=== PATIENT | male | born 1990 | race African-American/Black ===

== ENCOUNTER 2024-03-06 21:18 | Inpatient (IN) | payer OTHER ==
[~2024-03-06] VITALS: Ht 172.7 cm; Wt 101.6 kg
[2024-03-06 21:36] LABS: BASOPHILS ABSOLUTE AUTO 0.05 K/mm3 (0.00-0.23); BASOPHILS PERCENT AUTO 1 % (0-2); EOSINOPHILS ABSOLUTE AUTO 0.37 K/mm3 (0.00-0.68); EOSINOPHILS PERCENT AUTO 5 % (0-6); Hematocrit 37.8 % (37.0-53.0); Hemoglobin 12.5 g/dL (13.5-17.5); IMMATURE GRAN ABSOLUTE AUTO 0.03 K/mm3 (0.00-0.10); IMMATURE GRAN PERCENT AUTO 0 % (0-1); LYMPHOCYTES ABSOLUTE AUTO 2.53 K/mm3 (0.84-5.20); LYMPHOCYTES PERCENT AUTO 32 % (21-46); MONOCYTES PERCENT AUTO 10 % (4-13); Mean Corpuscular HGB 28.2 pg (26.0-34.0); Mean Corpuscular HGB Conc 33.1 g/dL (31.5-36.5); Mean Corpuscular Volume 85 fL (80-100); Mean Platelet Volume 11.2 fL (9.1-12.4); NEUTROPHILS ABSOLUTE AUTO 4.07 K/mm3 (1.96-9.15); NEUTROPHILS PERCENT AUTO 52 % (41-73); Platelet Count 292 K/mm3 (150-400); RDW Coefficient Variation 13.1 % (11.7-14.2); RDW Standard Deviation 40.9 fL (35.1-46.3); Red Blood Cell Count 4.43 M/mm3 (4.30-5.90); White Blood Cell Count 7.85 K/mm3 (4.00-11.30)
[2024-03-06 21:43] LABS: Bicarbonate Venous 22.1 mmol/L (24.0-30.0); PCO2 Venous 29.3 mmHg (38-42); pH Blood Venous 7.45 (7.34-7.37)
[2024-03-06 21:44] LABS: Base Excess Venous -4 mmol/L
[2024-03-06 21:56] LABS: Albumin, Blood 2.8 g/dL (3.4-5.0); Albumin/Globulin Ratio 0.6 (0.8-1.8); Bilirubin, Total 0.2 mg/dL (0.1-1.0); Calcium, Blood 8.4 mg/dL (8.5-10.1); Creatinine, Blood 3.59 mg/dL (0.60-1.20); Globulin, Blood 4.4 g/dL (2.2-4.0); Potassium, Blood 4.7 mmol/L (3.5-5.5); Total Protein, Blood 7.2 g/dL (6.4-8.2)
[2024-03-06] MEDS ORDERED: NS 1,000 ML IV SCH (23:15)
[2024-03-07 00:02] LABS: Source, Urine Clean Catch
[2024-03-07] MEDS ORDERED: AmLODIPine Besylate 5 MG Tab PO ONE (00:05)
[2024-03-07 00:09] LABS: Bilirubin, Urine Neg (Neg); Blood, Urine 2+ (Neg); Glucose Qualitative, Urine 4+ (Neg); Ketones, Urine 1+ (Neg); Leukocyte Esterase, Urine Neg (Neg); Nitrite, Urine Neg (Neg); Protein, Urine 4+ (Neg); Urobilinogen, Urine NORM (Normal)
[2024-03-07 00:21] LABS: Appearance, Urine Clear (Clear); Color, Urine Pale Yellow (P-Yellow)
[2024-03-07 00:22] LABS: Bacteria Not Seen /hpf; Red Blood Cells, Urine 0-2 /hpf (0-2); Squamous Epithelial Cells Rare /hpf (Few); White Blood Cells, Urine 0-2 /hpf (0-5)
[2024-03-07] MEDS ORDERED: Acetaminophen 500 MG Tab PO ONE (01:05)
[2024-03-07] MEDS ORDERED: AMLODIPINE BESY10 MG PO (01:13)
[2024-03-07] MEDS ORDERED: CARV25 PO (01:14)
[2024-03-07] MEDS ORDERED: ALFU10 PO (01:14)
[2024-03-07] MEDS ORDERED: HUMULIN N100 UNIT/1 SC ×2 (01:21→01:22)
[2024-03-07] MEDS ORDERED: HydrALAZINE HCl 20 MG / ML 1ML Vial IV PRN (01:35)
[2024-03-07] MEDS ORDERED: Ondansetron HCl 2 MG / ML 2ML Vial IV PRN (01:35)
[2024-03-07] MEDS ORDERED: Acetaminophen 325 MG TABLET PO PRN (01:35)
[2024-03-07] MEDS ORDERED: Lactated Ringer's 1,000 ML IV SCH (02:00)
[2024-03-07 03:17] LABS: BASOPHILS ABSOLUTE AUTO 0.04 K/mm3 (0.00-0.23); BASOPHILS PERCENT AUTO 0 % (0-2); EOSINOPHILS ABSOLUTE AUTO 0.39 K/mm3 (0.00-0.68); EOSINOPHILS PERCENT AUTO 4 % (0-6); Hemoglobin 11.4 g/dL (13.5-17.5); IMMATURE GRAN ABSOLUTE AUTO 0.03 K/mm3 (0.00-0.10); IMMATURE GRAN PERCENT AUTO 0 % (0-1); LYMPHOCYTES ABSOLUTE AUTO 2.22 K/mm3 (0.84-5.20); LYMPHOCYTES PERCENT AUTO 23 % (21-46); MONOCYTES ABSOLUTE AUTO 1.02 K/mm3 (0.16-1.47); MONOCYTES PERCENT AUTO 11 % (4-13); Mean Corpuscular HGB 28.4 pg (26.0-34.0); Mean Corpuscular HGB Conc 33.5 g/dL (31.5-36.5); Mean Corpuscular Volume 85 fL (80-100); Mean Platelet Volume 10.9 fL (9.1-12.4); NEUTROPHILS ABSOLUTE AUTO 5.78 K/mm3 (1.96-9.15); NEUTROPHILS PERCENT AUTO 61 % (41-73); Platelet Count 266 K/mm3 (150-400); RDW Coefficient Variation 13.2 % (11.7-14.2); RDW Standard Deviation 41.4 fL (35.1-46.3); Red Blood Cell Count 4.01 M/mm3 (4.30-5.90); White Blood Cell Count 9.48 K/mm3 (4.00-11.30)
[2024-03-07 03:45] LABS: Albumin, Blood 2.5 g/dL (3.4-5.0); Albumin/Globulin Ratio 0.6 (0.8-1.8); Bilirubin, Total 0.2 mg/dL (0.1-1.0); Bun/Creatinine Ratio 11.9 (12.0-20.0); Calcium, Blood 7.9 mg/dL (8.5-10.1); Creatinine, Blood 3.35 mg/dL (0.60-1.20); Globulin, Blood 3.9 g/dL (2.2-4.0); Potassium, Blood 4.1 mmol/L (3.5-5.5); Total Protein, Blood 6.4 g/dL (6.4-8.2)
[2024-03-07] MEDS ORDERED: Insulin Regular 100 UNIT/ML 10ML Vial SC SCH (06:00)
[2024-03-07] MEDS ORDERED: Heparin Sodium,Porcine 5,000 UNIT/0.5 ML SDV SC SCH (09:00)
[2024-03-07] MEDS ORDERED: AmLODIPine Besylate 5 MG Tab PO SCH (09:00)
[2024-03-07] MEDS ORDERED: CloNIDine 0.1 MG Tab PO SCH (09:00)
[2024-03-07] MEDS ORDERED: Insulin Human Lispro 100 Units/ML 3ML Syringe SC SCH (11:30)
[2024-03-07 12:11] VITALS: BP 172/93
[2024-03-07] MEDS ORDERED: HUMULIN R100 UNIT/2 SC (12:30)
[2024-03-07 12:32] VITALS: BP 158/80
--- NOTE | 2024-03-07 13:58 | NUR ---
NURSING PCU DAYSHIFT: Assumed care of pt at approx 1200. Arrived from ER via [place], accompanied by RNAdenike Suárez w/ODELL, for line management, to unit bed. Denied dizziness/light headedness, minimal BLE neuropathy r/t hx of diabetes. A/O, c/o 4/ MILLARD, tx w/meds as ordered. Skin fairly intact w/scattered scabs/scars noted to BLE. Tele in place, NSR, no c/o CP/pressure, SBP 170 at arrival, no noted edema. L/S cta t/o, O2 sat upper 90's on RA, denies dyspnea, no noted cough. Abd SNT, BT+, voiding w/o difficulty per pt. PIV x1, LR infusing at 150cc/hr. No s/s of acute distress upon arrival. Lab results reviewed, insulin administered as ordered. PRN IV hydralazine administered, f/u SBP 150's. Discussed plan of care w/pt and s/o. Denied questions at that time. Call light in reach, cont to monitor for any changes.
[2024-03-07 16:01] VITALS: BP 159/99
[2024-03-07] MEDS ORDERED: NS 1,000 ML IV ONE (17:20)
--- NOTE | 2024-03-07 17:54 | NUR ---
NURSING PCU DAYSHIFT SUMMARY: Pt continues to c/o MILLARD 4-01/15, treating w/meds as ordered. SBP remains 150's, HR 80-100, SR w/no CP/pressure. CBG >400 after LCS, PMD aware, new d/o received. 1000ml fluid bolus infusing and will be followed by f/u glucose check. Pt and s/o deny any questions/needs. Call light in reach. Cont to monitor until rpt is given to NOC RN.
[2024-03-07 20:16] VITALS: BP 180/100
--- NOTE | 2024-03-07 20:32 | NUR ---
ASSUMPTION OF CARE: PATIETN IS ALERT AND ORIENTED X 4, ABLE TO MAKE NEEDS KNOWN. IS AT THE BEDSIDE. EDUCATION ABOUT CURRENT ILLNESS AND PLAN OF CARE PROVIDED. IVS FLUSHED. PATIENT IS ON RA SPO2 >96%. PATIENT IS HYPERTENSIVE EVENING MEDS GIVEN PER NOV. CBG HAS BEEN BRITTLE, DAY RN ENDORSED PLAN, POLYURIA USING THE URINAL FOR ACCURATE I/O. NO ACUTE CONCERNS FROM FAMILY PT OR THIS RN AT THIS TIME.
[2024-03-07] MEDS ORDERED: Insulin NPH 100 Unit / ML 10ML Vial SC SCH (21:00)
[2024-03-07] MEDS ORDERED: Insulin NPH 10 Unit/0.1ML (Single Dose) SC SCH (21:00)
[2024-03-07] MEDS ORDERED: LevETIRAcetam 500 MG Tab PO SCH (21:00)
[2024-03-08 00:50] VITALS: BP 139/81
[2024-03-08 05:00] VITALS: BP 132/78
--- NOTE | 2024-03-08 06:33 | NUR ---
EOS: PATIENT ONLY IMPROVED THROUGHOUT THE NIGHT, CBG IMPROVED , DENIES CHEST PAIN PRESSURE OR SOB. ORAL INTAKE HAS BEEN WELL URINATING SLOWED MINORLY. REFLECTIVE FROM IMPROVED BLOOD PRESSURE. VSS NO ACUTE CONCERNS.
[2024-03-08 07:50] VITALS: BP 159/100
[2024-03-08 08:04] LABS: Bun/Creatinine Ratio 12.1 (12.0-20.0); Calcium, Blood 8.4 mg/dL (8.5-10.1); Creatinine, Blood 3.15 mg/dL (0.60-1.20)
[2024-03-08] MEDS ORDERED: Insulin NPH 100 Unit / ML 10ML Vial SC SCH (09:00)
[2024-03-08] MEDS ORDERED: Carvedilol 25 MG Tab PO SCH (09:00)
[2024-03-08] MEDS ORDERED: LEVETIRACETAM PO (09:23)
--- NOTE | 2024-03-08 11:20 | NUR ---
DISCHARGE: PT HAS BEEN CLEARED FOR DISCHARGE HOME. ALL IV ACCESS DC'd WNL. PT DRESSES SELF. DC PAPERWORK AND INSTRUCTIONS PROVIDED TO PT, ALL QUESTIONS HAVE BEEN ANSWERED. PT AMBULATES F/UNIT IN NAD, ESCORTED BY STAFF MEMBER.
[2024-03-08] MEDS ORDERED: AmLODIPine Besylate 5 MG Tab PO SCH (21:00)
== END 2024-03-08 11:14 | disposition home or self-care (01) | DRG 684 ==
LOC: ER 21:18 → ERHOLD 21:19 → ER 21:19 → ERHOLD 21:19 → PCU 21:19 → ERHOLD 03-07 11:56 → PCU 03-07 11:56 → ERHOLD 03-07 14:34 → PCU 03-08 11:14
PROVIDERS: Internal Medicine; Nurse Practitioner; ADMIT Student in an Organized Health Care Education/Training Program
DX: N17.9 Acute kidney failure, unspecified (principal); E10.22 Type 1 diabetes mellitus with diabetic chronic kidney disease; I12.9 Hypertensive chronic kidney disease with stage 1 through stage 4 chronic kidney disease, or unspecified chronic kidney disease; R56.9 Unspecified convulsions; E10.65 Type 1 diabetes mellitus with hyperglycemia; E86.0 Dehydration; N18.32 Chronic kidney disease, stage 3b; Z91.041 Radiographic dye allergy status; Z88.0 Allergy status to penicillin; Z91.018 Allergy to other foods; Z79.4 Long term (current) use of insulin; Z79.899 Other long term (current) drug therapy
CPT/HCPCS: 36415; 76770; 80048; 80053; 81001; 82550; 82570; 82803; 82947; 83036; 83735; 84300; 85025; 93005; 93010; 94762; 96361; 96372; 96374; 96375; 96376; 99285-25; A9270; G0378; J0360; J1644; J1815; J7030; J7120

== ENCOUNTER → 2024-09-16 | Outpatient (CLI) | payer MEDICARE, OTHER ==
[~2024-09-16] MED LIST: ALFU10 PO; AMLODIPINE BESY10 MG PO; CARV25 PO; HUMULIN N100 UNIT/1 SC; HUMULIN R100 UNIT/2 SC; LEVETIRACETAM PO
== END ==
LOC: LAB 17:00 → LAB SHORT 17:00
DX: N39.0 Urinary tract infection, site not specified (principal)
CPT/HCPCS: 87086

== ENCOUNTER 2025-01-01 21:36 | Emergency (ER) | payer MEDICARE, OTHER ==
[~2025-01-01] VITALS: Ht 172.7 cm; Wt 97.5 kg
[2025-01-01 22:02] LABS: BASOPHILS ABSOLUTE AUTO 0.05 K/mm3 (0.00-0.23); BASOPHILS PERCENT AUTO 0 % (0-2); EOSINOPHILS PERCENT AUTO 4 % (0-6); Hematocrit 36.4 % (37.0-53.0); Hemoglobin 11.8 g/dL (13.5-17.5); IMMATURE GRAN ABSOLUTE AUTO 0.04 K/mm3 (0.00-0.10); IMMATURE GRAN PERCENT AUTO 0 % (0-1); LYMPHOCYTES ABSOLUTE AUTO 1.73 K/mm3 (0.84-5.20); LYMPHOCYTES PERCENT AUTO 15 % (21-46); MONOCYTES ABSOLUTE AUTO 0.71 K/mm3 (0.16-1.47); MONOCYTES PERCENT AUTO 6 % (4-13); Mean Corpuscular HGB Conc 32.4 g/dL (31.5-36.5); Mean Corpuscular Volume 89 fL (80-100); Mean Platelet Volume 10.8 fL (9.1-12.4); NEUTROPHILS ABSOLUTE AUTO 8.36 K/mm3 (1.96-9.15); NEUTROPHILS PERCENT AUTO 74 % (41-73); Platelet Count 269 K/mm3 (150-400); RDW Coefficient Variation 13.2 % (11.7-14.2); RDW Standard Deviation 43.5 fL (35.1-46.3); Red Blood Cell Count 4.07 M/mm3 (4.30-5.90); White Blood Cell Count 11.29 K/mm3 (4.00-11.30)
[2025-01-01 22:02] LABS: Base Excess Venous 7.7 mmol/L; Bicarbonate Venous 29.7 mmol/L (24.0-30.0); PCO2 Venous 43.8 mmHg (38-42); pH Blood Venous 7.46 (7.34-7.37)
[2025-01-01 22:32] LABS: Beta-hydroxybutyrate 8.1 mg/dL (0.2-2.8); Magnesium, Blood 2.8 mg/dL (1.6-2.4)
[2025-01-01 22:33] LABS: Albumin, Blood 3.6 g/dL (3.4-5.0); Albumin/Globulin Ratio 0.8 (0.8-1.8); Bilirubin, Total 0.3 mg/dL (0.1-1.0); Bun/Creatinine Ratio 5.8 (12.0-20.0); Creatinine, Blood 5.04 mg/dL (0.60-1.20); Globulin, Blood 4.6 g/dL (2.2-4.0); Potassium, Blood 4.8 mmol/L (3.5-5.5); Total Protein, Blood 8.2 g/dL (6.4-8.2)
[2025-01-01 22:58] LABS: Influenza A, PCR NEGATIVE (NEGATIVE); Influenza B, PCR NEGATIVE (NEGATIVE); Resp Syncytial Virus, PCR NEGATIVE (NEGATIVE); SARS-Cov-2 (COVID-19) PCR, MMC NEGATIVE (NEGATIVE)
== END 2025-01-01 23:47 | disposition home or self-care (01) ==
LOC: ER 21:36
PROVIDERS: Student in an Organized Health Care Education/Training Program
DX: R53.1 Weakness (principal); E10.22 Type 1 diabetes mellitus with diabetic chronic kidney disease; N18.6 End stage renal disease; Z99.2 Dependence on renal dialysis; Z79.4 Long term (current) use of insulin; Z79.899 Other long term (current) drug therapy; Z91.041 Radiographic dye allergy status; Z88.0 Allergy status to penicillin; Z88.2 Allergy status to sulfonamides
CPT/HCPCS: 0241U; 71045; 80053; 82010; 82803; 82947; 83735; 85025; 93005; 93010; 99285-25